=== PATIENT | female | born 1990 | race Caucasian/White ===

== ENCOUNTER 2019-09-30 13:00 | Emergency (ER) | payer BC, MEDICAID ==
[~2019-09-30] VITALS: Ht 170.2 cm; Wt 59.0 kg
--- NOTE | 2019-09-30 13:01 | NUR ---
called for triage not in the waiting room
[2019-09-30 13:08] VITALS: BP 133/92
== END 2019-09-30 13:28 | disposition home or self-care (01) ==
LOC: ER 13:06
DX: M54.2 Cervicalgia (principal); R51 Headache; M25.511 Pain in right shoulder; R42 Dizziness and giddiness; J45.909 Unspecified asthma, uncomplicated; W01.0XXA Fall on same level from slipping, tripping and stumbling without subsequent striking against object, initial encounter; Y93.89 Activity, other specified; Y92.89 Other specified places as the place of occurrence of the external cause; Y99.8 Other external cause status